=== PATIENT | female | born 1960 | race Caucasian/White ===

== ENCOUNTER → 2018-03-20 | Outpatient (CLI) | payer BC | LOC: M WHC 09:25 | DX: Z12.31 Encounter for screening mammogram for malignant neoplasm of breast (principal); Z78.0 Asymptomatic menopausal state; Z92.29 Personal history of other drug therapy | CPT/HCPCS: 77067 ==

== ENCOUNTER → 2019-03-20 | Outpatient (CLI) | payer BC ==
--- NOTE | 2019-03-20 13:19 | REPMRS ---
Patient History The patient states she had a clinical breast exam in 03/2019. Family history of breast cancer at age 50 or over in maternal cousin. Took unspecified hormones for 2 years. Digital Woman Screen Mammo: March 20, 2019 - Exam #: [id number] Bilateral CC and MLO view(s) were taken. Technologist: Myrna Harper, Technologist Prior study comparison: March 20, 2018, bilateral digital woman screen mammo performed at [facility]. March 17, 2017, digital woman screen mammo performed at [facility]. February 23, 2016, digital woman screen mammo performed at [facility]. FINDINGS: The breast tissue is heterogeneously dense. This may lower the sensitivity of mammography. There is a moderate amount of heterogeneously dense fibroglandular tissue which is fairly symmetric. There is no interval development of dominant mass, architectural distortion, or grouped microcalcification typical of malignancy. There has been no change in the appearance of the mammogram from the prior studies. 3-D tomosynthesis shows no additional findings. Assessment: BI-RADS/ACR category 1 mammogram. Negative Mammogram. Recommendation Routine screening mammogram of both breasts in 1 year (for women over age 40). This patient's Lifetime Breast Cancer RIsk is estimated at 10.7 %. This mammogram was interpreted with the aid of an FDA-approved computer-aided dectection system. Electronically Signed By: Juan Cox MD 03/20/19 1608
--- NOTE | 2019-03-21 15:53 | DEXA ---
AP SPINE L1 - L4 0.908 -2.3 -1.2 LT FEMUR TOTAL 0.806 -1.6 -0.8 LT NECK 0.780 -1.9 -0.7 RT FEMUR TOTAL 0.812 -1.6 -0.7 RT NECK 0.782 -1.8 -0.7 TOTAL BODY TOTAL OTHER COMMENTS: There is low bone density of the spine and hips. The density of the spine has increased 5.0% since the initial exam on 03/28/2006. The spine density has increased 6.9% since the most recent exam on 03/17/2017. The density of the left hip has decreased 2.7% since the initial exam on 03/28/2006. The density of the left hip has increased 2.4% since the most recent exam on 03/17/2017. The density of the right hip has decreased 2.3% since the initial exam on 03/28/2006. The density of the right hip has increased 2.4% since the most recent exam on 03/17/2017. FOLLOW-UP: Recommendation for the next bone density exam: 5 years. ALONSOD
== END ==
LOC: M WHC 08:57
PROVIDERS: ATTEND Nurse Practitioner Women's Health
DX: Z12.31 Encounter for screening mammogram for malignant neoplasm of breast (principal); M81.0 Age-related osteoporosis without current pathological fracture; E89.41 Symptomatic postprocedural ovarian failure

== ENCOUNTER 2020-01-14 09:10 | Day surgery (SDC) | payer BC ==
[~2020-01-14 09:10] MED LIST: LIDOCAINE 2% 100MG/5ML SDV (FOR ANES.) As Ordered ONE; MIDAZOLAM INJ 2MG/2ML VIAL (J2250 PER 1MG) As Ordered ONE; ROCURONIUM BROMIDE 50 MG/5 ML VIAL As Ordered ONE; fentaNYL 250 MCG/5 ML INJECTION (J3010) As Ordered ONE; propofoL 200 MG/20 ML VIAL As Ordered ONE
[2020-01-14] MEDS ORDERED: ceFAZolin 2 GM/D5W 50 ML IV BAG (J0690 PER 500MG) As Ordered ONE (10:36)
[2020-01-14] MEDS ORDERED: LACRILUBE (AKWA TEARS) OPHTH OINT 3.5 GM As Ordered ONE (10:39)
[2020-01-14] MEDS ORDERED: ceFAZolin 1GM VIAL (J0690 PER 500MG) As Ordered ONE (10:44)
[2020-01-14] MEDS ORDERED: BUPIVACAINE/EPIN 0.25% 30 ML VIAL As Ordered ONE (10:45)
[2020-01-14] MEDS ORDERED: ONDANSETRON 4MG/2ML VIAL As Ordered ONE (11:05)
[2020-01-14] MEDS ORDERED: KETOROLAC 60MG 2ML VIAL As Ordered ONE (11:05)
[2020-01-14] MEDS ORDERED: dexameTHASONE 4 MG/ML 1ML VIAL (J1100 PER 1MG) As Ordered ONE (11:05)
[2020-01-14] MEDS ORDERED: ePHEDrine SULFATE 25 MG/5 ML(5MG/ML) SYRINGE As Ordered ONE (11:10)
--- NOTE | 2020-02-28 08:53 | REP ---
C-ARM VIEW LEFT THIRD DIGIT: FINDINGS: Single C-arm view of the left third digit is performed. There is evidence of amputation of the distal end of the left third digit at the level of the base of the distal phalanx. There is an overlying metallic instrument extending across the middle phalanx. 2 seconds of fluoroscopy time is utilized. MTDD
--- NOTE | 2020-03-12 13:26 | RO ---
DATE OF OPERATION: 01/14/2020 PREOPERATIVE DIAGNOSIS: Left middle finger partial amputation. POSTOPERATIVE DIAGNOSIS: Left middle finger partial amputation. PLANNED PROCEDURE: Left middle finger revision amputation. PROCEDURE PERFORMED: Left middle finger revision amputation. SURGEON: Rancho Huffman MD ANESTHESIOLOGIST: ANESTHESIA: General anesthetic and digital block. HOT PATCHER: None. DESCRIPTION OF PROCEDURE: The patient is a pleasant 59-year-old female who had a distal finger partial amputation with exposed bone. We talked about the pros and cons, risks and benefits of going ahead with revision amputation. She wished to proceed. I reiterated the risks in preoperative holding and marked the left third finger and proceeded to surgery. The patient was brought to the operating theatre. She was placed supine on the operating room table, and then 2 grams of IV Ancef was administered. The rings were attempted to be removed from her ring finger, but these were not able to be removed so they were left in situ. The hand was prepped and draped with iodine prep solution after the bandage was removed. All bony prominences were padded. Sequential compression devices (SCDs) were used on the legs and Iban Hugger was employed. Prep solution was allowed over three minutes prep solution drying time. Draping was performed. Preoperative time-out was performed to identify the patient and surgery. We began by examining the soft tissue and bony defects. There was exposed bone distally. There was a small sliver of nail just distal to the eponychium. On the palmar side, there was a superficial removal of the epidermis. The dermis layer appeared intact. The exposed bone was ronguered shorter. Intraoperative x-rays were taken to confirm that the bony surface were flat and free of sharp edges. I preliminary held the skin edges together to ensure that there was no undue tension on the wound. This appeared appropriate. The nail was removed fully using a curved snap with gentle longitudinal pressure. The germinal matrix was also removed to prevent nail overgrowth and to prevent nail secondary complications in the future. Final radiographs were taken and saved onto the system. One liter of normal saline with 1 gram of Ancef in solution was used to thoroughly irrigate the site. 2 mL of 0.25% Marcaine with 1:100,000 epinephrine was used to perform a digital block in the PIP joint on either side. This controlled bleeding nicely throughout the case. Skin edges were closed in a [id number] fashion at the tip of the digit using 3-0 Ethilon suture in a simple suture configuration. Adaptic was then placed and over wrapped with Rupinder-type dressing. The patient was awoken from general anesthetic, transferred off the operating room table, and taken to the post anesthesia care unit in stable condition. All sponge counts, needle counts, and instrument counts were correct. No complications. Estimated blood loss 5 mL. PLAN: Patient will be discharged home after meeting current day surgery criteria. I would like her to change the dressing one to times a day. Follow up in the office in two weeks time and start immediate range of motion. MONIQUE
== END 2020-01-14 12:56 | disposition home or self-care (01) ==
LOC: M SDC 09:10
PROVIDERS: ATTEND Orthopaedic Surgery Sports Medicine
DX: S68.123A Partial traumatic metacarpophalangeal amputation of left middle finger, initial encounter (principal); X58.XXXA Exposure to other specified factors, initial encounter; Y92.89 Other specified places as the place of occurrence of the external cause; Y93.9 Activity, unspecified; Y99.9 Unspecified external cause status; F17.218 Nicotine dependence, cigarettes, with other nicotine-induced disorders
CPT/HCPCS: 26951; 73140; J0690; J1100; J1885; J2250; J2405; J3010

== ENCOUNTER → 2020-03-24 | Outpatient (CLI) | payer BC ==
--- NOTE | 2020-03-24 10:28 | REPMRS ---
Patient History The patient states she had a clinical breast exam in March 2020. Family history of breast cancer at age 50 or over in maternal cousin. Took unspecified hormones for 2 years. 3D TOMOSYNTHESIS WAS PERFORMED. [facility] lifetime risk for [facility] cancer is 10.4%. Drewjoe dinah allen. Digital Woman Screen Mammo: March 24, 2020 - Exam #: [id number] Bilateral CC and MLO view(s) were taken. Technologist: RT Andre Prior study comparison: March 20, 2019, bilateral digital woman screen mammo performed at [facility]. March 20, 2018, bilateral digital woman screen mammo performed at [facility]. FINDINGS: The breast tissue is heterogeneously dense. This may lower the sensitivity of mammography. There has been no change in the appearance of the mammogram from the prior studies. There is a moderate amount of residual fibroglandular tissue which is fairly symmetric. There is no interval development of dominant mass, areas of architectural distortion, or clustered microcalcification typical of malignancy. Assessment: BI-RADS/ACR category 1 mammogram. Negative Mammogram. Recommendation Routine screening mammogram in 1 year (for women over age 40). This mammogram was interpreted with the aid of an FDA-approved computer-aided dectection system. Electronically Signed By: Cristian Escalante MD 03/24/20 4831
== END ==
LOC: M WHC 09:16
PROVIDERS: ATTEND Nurse Practitioner Women's Health
DX: Z12.31 Encounter for screening mammogram for malignant neoplasm of breast (principal)

== ENCOUNTER → 2021-07-20 | Outpatient (CLI) | payer BC ==
[2021-07-20 14:55] LABS: ALBUMIN 4.1 GM/DL (3.2-5.2); ALT/SGPT 18 U/L (12-78); BILIRUBIN,TOTAL 0.6 MG/DL (0.2-1.0); BLOOD UREA NITROGEN 8 MG/DL (7-18); CALCIUM LEVEL 9.5 MG/DL (8.8-10.2); CARBON DIOXIDE LEVEL 26 MEQ/L (21-32); CHLORIDE LEVEL 106 MEQ/L (98-107); CREATININE FOR GFR 0.69 MG/DL (0.55-1.30); GLOMERULAR FILTRATION RATE > 60.0 (>45); GLUCOSE, FASTING 77 MG/DL (70-100); POTASSIUM SERUM 4.3 MEQ/L (3.5-5.1); SODIUM LEVEL 141 MEQ/L (136-145); TOTAL 25(OH) VITAMIN D 17.7 NG/ML (30.0-100.0); TOTAL PROTEIN 7.2 GM/DL (6.4-8.2)
== END ==
LOC: M PLALAB 11:24
PROVIDERS: ATTEND Internal Medicine Endocrinology, Diabetes & Metabolism
DX: E55.9 Vitamin D deficiency, unspecified (principal)

== ENCOUNTER → 2021-10-21 | Outpatient (CLI) | payer BC | LOC: M PLALAB 10:48 | PROVIDERS: ATTEND Nurse Practitioner Family | DX: E55.9 Vitamin D deficiency, unspecified (principal) ==

== ENCOUNTER → 2024-03-28 | Outpatient (CLI) | payer BC | LOC: M WHC 08:37 | PROVIDERS: ATTEND Nurse Practitioner Family | DX: Z12.31 Encounter for screening mammogram for malignant neoplasm of breast (principal); Z13.820 Encounter for screening for osteoporosis; M85.89 Other specified disorders of bone density and structure, multiple sites; R92.333 Mammographic heterogeneous density, bilateral breasts ==

== ENCOUNTER → 2025-05-20 | Outpatient (CLI) | payer BC | LOC: M WHC 09:06 | PROVIDERS: ATTEND Physician Assistant | DX: Z12.31 Encounter for screening mammogram for malignant neoplasm of breast (principal); Z12.4 Encounter for screening for malignant neoplasm of cervix; R92.323 Mammographic fibroglandular density, bilateral breasts ==